=== PATIENT | male | born 1980 | race Caucasian/White ===

== ENCOUNTER 2018-05-08 22:22 | Emergency (ER) | payer MEDICAID ==
[~2018-05-08] VITALS: Ht 175.3 cm; Wt 59.0 kg
[2018-05-08 22:23] VITALS: BP 156/85
--- NOTE | 2018-05-08 22:35 | NUR ---
[email or web address] his hand in warm [id number] water
[2018-05-08] MEDS ORDERED: SULF1TAB49 PO (22:50)
[2018-05-08] MEDS ORDERED: ibuprofen tablet 400 MG TABLET PO ONE (22:50)
[2018-05-08] MEDS ORDERED: IBUP-1986 PO (22:50)
== END 2018-05-08 23:02 | disposition home or self-care (01) ==
LOC: ER 22:23
DX: L02.511 Cutaneous abscess of right hand (principal); Z79.899 Other long term (current) drug therapy
CPT/HCPCS: 26010; 99283